=== PATIENT | male | born 1965 | race Caucasian/White ===

== ENCOUNTER → 2018-11-19 | Outpatient (CLI) | payer OTHER ==
--- NOTE | 2018-11-19 10:41 | XR ---
EXAMINATION TYPE: XR shoulder complete LT DATE OF EXAM: 11/19/2018 COMPARISON: NONE HISTORY: 52-year-old male strain of unspecified muscle, fascia, shoulder strain TECHNIQUE: 3 views FINDINGS: Mild degenerative spurring at the AC joint. Subacromial space is preserved. No acute fracture, sublux ation, or dislocation seen. IMPRESSION: Mild degenerative change at the AC joint. No acute osseous abnormality seen.
== END | disposition home or self-care (01) ==
LOC: RADXRMAIN 10:15
PROVIDERS: ATTEND Emergency Medicine
DX: M19.012 Primary osteoarthritis, left shoulder (principal)

== ENCOUNTER → 2018-11-20 | Outpatient (CLI) | payer OTHER ==
--- NOTE | 2018-11-20 09:38 | MR ---
EXAMINATION TYPE: MR shoulder LT wo con DATE OF EXAM: 11/20/2018 COMPARISON: Left shoulder x-ray from yesterday HISTORY: Left shoulder pain with difficulty raising overhead since injury 2 days ago TECHNIQUE: Multiplanar, multisequence imaging of the left shoulder is performed without contrast. FINDINGS: Rotator Cuff: There are full-thickness tear articular surface supraspinatus tendon measuring 15 mm AP diameter sagittal image 9 x 8 mm transversely coronal image 10. Some of the posterior fibers are int act. Infraspinatus tendon is intact. There is marked thickening and increased signal of the subscapul amadeo tendon with surrounding fluid. Some fibers are felt intact. Rotator cuff muscle bulk is preserve d. Acromioclavicular Joint: Moderate to severe narrowing and spurring.Capsular hypertrophy is present. E ffacement of underlying fat is noted. Glenohumeral Joint: Motion artifact degradation. Small joint effusion. Moderate narrowing. No signifi cant spurring. Labrum: The superior labrum shows increased signal consistent with degenerative tear patient of this age. Biceps Tendon: The long head of biceps is in normal location within bicipital groove. Bone marrow signal: Subchondral cystic change superolateral humeral head is present. Other: There is edematous change anteriorly extending inferiorly along the course of the proximal hum eral metadiaphysis and anterior to the subscapularis muscle bulk. Some involvement of the anterior de ltoid muscle bulk is noted seen best on axial images. IMPRESSION: 1. Severe tendinosis of the subscapularis tendon presumed related to recent trauma with adjacent johnny a extending inferiorly. Some contusion injury extends into the deltoid muscle. 2. Significant articular surface tear distal supraspinatus tendon. 3. Fairly moderate degenerative changes as detailed above. Underlying impingement suspected.
== END | disposition home or self-care (01) ==
LOC: RADMRIMAIN 06:27
PROVIDERS: ATTEND Emergency Medicine
DX: M75.82 Other shoulder lesions, left shoulder (principal); S46.812A Strain of other muscles, fascia and tendons at shoulder and upper arm level, left arm, initial encounter; M19.012 Primary osteoarthritis, left shoulder; S40.012A Contusion of left shoulder, initial encounter

== ENCOUNTER → 2020-08-13 | Outpatient (CLI) | payer BC ==
--- NOTE | 2020-08-14 03:54 | MR ---
EXAMINATION TYPE: MR brain and iac wo/w con DATE OF EXAM: 08/13/2020 COMPARISON: None HISTORY: Rt side hearing loss CONTRAST: Standard multiplanar, multisequence MRI departmental protocol utilizing 10ml mL intravenous Gadavist gadolinium contrast. Ventricles have normal size. There is no mass effect nor midline shift. There is no sign of intracran ial hemorrhage. Diffusion images show no evidence of an acute infarct. There is cavum septum pellucid um which is normal variant. Contrast images show normal enhancement of the venous sinuses. There is no pathologic enhancement. Th e corpus callosum appears normal. Sella turcica is normal. There is 4 mm focus of increased signal in the pickard-white matter junction left posterior frontal lobe on the T2 and FLAIR images. There is 3 mm focus similarly in the deep right temporal lobe white matter. Cerebellum appears intact. There is no evidence of cerebellopontine angle mass. The internal auditory canals appear normal. The acoustic nerve and vestibular nerves appear normal. There is no evidence o f mastoiditis. Temporal bones have normal signal pattern. Optic chiasm appears normal. Pituitary stalk is in the midline. There is no evidence of orbital mass. IMPRESSION: Isolated white matter high signal foci as above of doubtful significance. No posterior fossa abnormal ity.
== END | disposition home or self-care (01) ==
LOC: RADMRIMAIN 19:29
PROVIDERS: ATTEND Otolaryngology
DX: R90.82 White matter disease, unspecified (principal)
CPT/HCPCS: 70553; A9585